=== PATIENT | male | born 1995 | race Caucasian/White ===

== ENCOUNTER 2024-02-22 10:54 | Emergency (ER) | payer OTHER ==
[~2024-02-22] VITALS: Ht 175.3 cm; Wt 68.2 kg
[2024-02-22] MEDS ORDERED: NS 1,000 ML IV ONE (11:15)
[2024-02-22 11:23] LABS: HEMATOCRIT 46.6 % (42.0-52.0); HEMOGLOBIN 15.9 g/dl (13.5-18.0); MEAN CELL VOLUME 89 fl (80.0-100.0); MEAN CORPUSCULAR HEMOGLOBIN 30 pg (27-31); MEAN CORPUSCULAR HGB CONC 34 g/dl (33.0-37.0); MEAN PLATELET VOLUME 10.6 fl (7.4-10.4); PLATELET COUNT 186 K/mm3 (130-400); RED BLOOD COUNT 5.26 M/mm3 (4.20-5.60); REDCELL DISTRIBUTION WIDTH-CV 13.6 % (11.5-14.5)
[2024-02-22 11:37] LABS: ALBUMIN 4.9 g/dL (3.5-5.0); CALCIUM 10.4 mg/dL (8.4-10.2); CREATININE, serum 1.72 mg/dL (0.72-1.25); TOTAL PROTEIN 7.9 g/dl (6.2-8.1)
[2024-02-22 12:02] LABS: POTASSIUM 5.8 mEq/L (3.5-4.5)
[2024-02-22 12:09] LABS: BAND 4 % (0-10); LYMPHOCYTE 3 % (20.0-51.0); METAMYELOCYTE 1 % (0-0); NEUTROPHILS 85 % (42.0-75.2); PLATELET ESTIMATE NORMAL (NORMAL)
[2024-02-22 13:15] LABS: CALCIUM 9.8 mg/dL (8.4-10.2); CREATININE, serum 1.57 mg/dL (0.72-1.25); POTASSIUM 5.2 mEq/L (3.5-4.5)
[2024-02-22 14:07] VITALS: BP 94/65; PULSE 65; TEMP 97.7
== END 2024-02-22 14:09 | disposition home or self-care (01) ==
LOC: COL.ER 10:54
PROVIDERS: Emergency Medicine
DX: E86.0 Dehydration (principal); E87.5 Hyperkalemia; N17.9 Acute kidney failure, unspecified
CPT/HCPCS: J7030